=== PATIENT | female | born 1970 | race Caucasian/White ===

== ENCOUNTER 2017-03-07 03:36 | Emergency (ER) | payer MEDICARE, OTHER ==
[~2017-03-07] VITALS: Ht 170.2 cm; Wt 83.9 kg
--- OUTSIDE RECORDS SUMMARY | ~2017-03-07 | XMS ---
Demographics + + + | Address | [address] | | | [place] [address] | + + + | Preferred Language | Unknown | + + + | Marital Status | Unknown | + + + | Yazidi Affiliation | Unknown | + + + | Race | Unknown | + + + | Ethnic Group | Unknown | + + + Author + + + | Author | [facility] | + + + | Organization | [facility] | + + + | Address | [address] | | | [place] [address] | + + + | Phone | | + + + Care Team Providers + + + + | Care Drywaller Name | Role | Phone | + + + + Unavailable | Unavailable | + + + + PROBLEMS Unknown Problems ALLERGIES No Information SOCIAL HISTORY Never Assessed PLAN OF CARE VITAL SIGNS MEDICATIONS Unknown Medications RESULTS No Results PROCEDURES No Known procedures IMMUNIZATIONS No Known Immunizations MEDICAL (GENERAL) HISTORY + + + + | Type | Description | Date | + + + + | Medical History | Hypothyroidism | | + + + + | Medical History | Depression/Anxiety | | + + + + | Medical History | asthma - mild intermittent | | + + + + | Medical History | hypercholesterolemia | | + + + + | Surgical History | knee arthroscopy x2 | | + + + + | Surgical History | carpal tunnel release | 2011 | | | (bilateral) | | + + + + | Surgical History | cholecystectomy | 2013 | + + + + | Surgical History | Foot Surgery | 2015 | + + + + | Surgical History | Hysteroscopy with D&C | 01/2016 | + + + + | Surgical History | T & A | 2016 | + + + +"
[~2017-03-07 03:36] MED LIST: ALBUTEROL2.5 MG/0.5 PO; AMBIEN10 MG PO; AMOXICILLIN500 MG PO; BUSPIRONE HCL15 MG PO; CELEXA40 MG PO; CITALOPRAM HBR10 MG PO; CLONAZEPAM0.5 MG PO; FENOFIBRATE160 MG PO; HYCET 7.5 MG-3473 ML PO; HYDROCODON-ACE1 EA10 PO; LEVOTHYROXINE75 MCG PO; LIPITOR40 MG; LITHIUM CARBON300 M1 PO; LITHIUM CARBON300 MG PO; PERCOCET 5-3251 EACH PO; PERCOCET 7.5-31 EACH PO; PREDNISONE20 MG PO; PROAIR HFA8.5 GM INH; SINGULAIR10 MG PO; TUSSIONEX PENN480 ML PO; VENTOLIN HFA18 GM INH; VITAMIN D5000 UNI1 PO
[2017-03-07] MEDS ORDERED: VALIUM5 MG PO (03:46)
[2017-03-07] MEDS ORDERED: DILAUDID4 MG PO (03:46)
[2017-03-07] MEDS ORDERED: BACLOFEN10 MG PO (03:58)
== END 2017-03-07 04:55 | disposition home or self-care (01) ==
LOC: ED 03:36
DX: G89.18 Other acute postprocedural pain (principal); M79.605 Pain in left leg; F31.9 Bipolar disorder, unspecified; F40.00 Agoraphobia, unspecified; E03.9 Hypothyroidism, unspecified; J45.909 Unspecified asthma, uncomplicated; F41.9 Anxiety disorder, unspecified; F17.200 Nicotine dependence, unspecified, uncomplicated; Z90.710 Acquired absence of both cervix and uterus; Z98.890 Other specified postprocedural states; Z79.899 Other long term (current) drug therapy
CPT/HCPCS: 96372; 99282; J2550; J3010

== ENCOUNTER 2017-04-11 11:22 | Emergency (ER) | payer MEDICARE, OTHER ==
[~2017-04-11] VITALS: Ht 170.2 cm; Wt 73.9 kg
[~2017-04-11 11:22] MED LIST changes: +BACLOFEN10 MG PO; +DILAUDID4 MG PO; +VALIUM5 MG PO
[2017-04-11] MEDS ORDERED: LITHIUM8 MEQ/5 ML (11:42)
[2017-04-11] MEDS ORDERED: VENTOLIN HFA18 GM (11:42)
== END 2017-04-11 17:10 | disposition short-term general hospital (02) ==
LOC: ED 11:22
PROC: 4A0D7LZ Measurement of Urinary Volume, Via Natural or Artificial Opening (ICD-10-PCS; principal; 2017-04-11)
DX: T56.891A Toxic effect of other metals, accidental (unintentional), initial encounter (principal); E86.0 Dehydration; F31.9 Bipolar disorder, unspecified; F41.9 Anxiety disorder, unspecified; E03.9 Hypothyroidism, unspecified; J45.909 Unspecified asthma, uncomplicated; Z87.891 Personal history of nicotine dependence; Z90.710 Acquired absence of both cervix and uterus; Z90.89 Acquired absence of other organs; Z88.5 Allergy status to narcotic agent; Z88.6 Allergy status to analgesic agent; Z79.899 Other long term (current) drug therapy
CPT/HCPCS: 51798; 80053; 80178; 81001; 83605; 83690; 85025; 99285; G0480; J7030

== ENCOUNTER 2017-08-05 12:33 | Emergency (ER) | payer MEDICARE, OTHER ==
[~2017-08-05] VITALS: Ht 170.2 cm; Wt 73.9 kg
[~2017-08-05 12:33] MED LIST changes: +LITHIUM8 MEQ/5 ML; +VENTOLIN HFA18 GM
[2017-08-05] MEDS ORDERED: DOK100 M1 PO (12:50)
[2017-08-05] MEDS ORDERED: BACLOFEN10 MG PO (12:50)
[2017-08-05] MEDS ORDERED: OXYCONTIN10 MG PO (12:52)
[2017-08-05] MEDS ORDERED: PERCOCET 5-3251 EACH PO (12:52)
[2017-08-05] MEDS ORDERED: XANAX0.5 MG PO (12:53)
--- OUTSIDE RECORDS SUMMARY | 2017-08-05 13:18 | XMS ---
Demographics + + + | Address | [address] | | | [place] [address] | + + + | Preferred Language | Unknown | + + + | Marital Status | Unknown | + + + | Yazdanism Affiliation | Unknown | + + + | Race | Unknown | + + + | Ethnic Group | Unknown | + + + Author + + + | Author | [facility] | + + + | Organization | [facility] | + + + | Address | [address] | | | [place] [address] | + + + | Phone | | + + + Care Team Providers + + + + | Care Build And Release Manager Name | Role | Phone | + + + + Unavailable | Unavailable | + + + + PROBLEMS Unknown Problems ALLERGIES Unknown Allergies SOCIAL HISTORY No smoking Hx information available PLAN OF CARE VITAL SIGNS MEDICATIONS Unknown Medications RESULTS No Results PROCEDURES No Known procedures IMMUNIZATIONS No Known Immunizations"
[2017-08-05] MEDS ORDERED: ZOFRAN ODT4 MG PO (14:47)
== END 2017-08-05 14:55 | disposition home or self-care (01) ==
LOC: ED 12:33
DX: R11.2 Nausea with vomiting, unspecified (principal); E03.9 Hypothyroidism, unspecified; F31.9 Bipolar disorder, unspecified; F41.9 Anxiety disorder, unspecified; J45.909 Unspecified asthma, uncomplicated; F17.200 Nicotine dependence, unspecified, uncomplicated; Z88.5 Allergy status to narcotic agent; Z88.6 Allergy status to analgesic agent; Z79.899 Other long term (current) drug therapy
CPT/HCPCS: 80053; 80178; 81001; 85025; 96374; 96375; 99283; J1170; J2405; J7120

== ENCOUNTER 2020-08-29 08:30 | Day surgery (SDC) | payer MEDICARE ==
[~2020-08-29] VITALS: Ht 170.2 cm; Wt 80.0 kg
[~2020-08-29 08:30] MED LIST changes: +DOK100 M1 PO; +LITHIUM CARBON450 MG PO; +LITHOBID300 MG PO; +ONDANSETRON ODT4 MG PO; +OXYCODONE-ACET1 EAC3 PO; +OXYCONTIN10 MG PO; +XANAX0.5 MG PO; +ZOFRAN ODT4 MG PO
[2020-08-29] MEDS ORDERED: LAMICTAL25 MG PO (08:49)
--- NOTE | 2020-08-29 10:26 | NUR ---
08/29/20 1026 Dia Dow 1021 PATIENT ARRIVES TO PACU AWAKE OFF/ON. RESP EVEN AND UNLABORED, NC AT 3 LITERS TURNED OFF ON ARRIVAL TO PACU. PATIENT DENIES PAIN OR NAUSEA.
--- NOTE | 2020-08-30 05:52 | OR ---
[facility] [address] [place], [place] [address] Signed DATE OF OPERATION: 08/29/2020 SURGEON: Martinez Ramirez MD PREOPERATIVE DIAGNOSES: 1. Screening. 2. Change in bowel habits with constipation following narcotics. 3. Remote history of diarrhea after cholecystectomy. POSTOPERATIVE DIAGNOSES: 1. Minimal internal hemorrhoids. 2. 4 mm polyps x2 at 7 cm. 3. 3 mm polyp at 15 cm (rectum). 4. 5 mm polyp at 25 cm. PROCEDURE: Colonoscopy with hot biopsy and random cold biopsies x2. ESTIMATED BLOOD LOSS: None. INDICATIONS: Jamaica is a 50-year-old female, asked to see mainly for a screening colonoscopy. She talked about diarrhea after her cholecystectomy. That seemed to have improved over time. She has also had her knee replaced and was having a change in bowel habits with constipation because of the oxycodone and again that is improved as she has decreased the oxycodone. She tells me there is no family history of colon cancer or polyps. This would be her 1st colonoscopy. In the office, I gave her and her friend a booklet on colonoscopy. Her friend has been through this already. She understands the nature of the test along with the risks including, but not limited to gas bloating, crampy abdominal pain, bleeding, perforation requiring surgery, and missed diagnosis. We also discussed the need for the IV conscious sedation, she had expressed understanding and wished to proceed. PROCEDURE NOTE: Jamaica was taken into the endoscopy suite and placed in the left lateral decubitus position. She was given a total of 13 mg of Versed and 200 mcg of fentanyl to cover the case. Even then she was little uncomfortable and able to talk and move her head about. We almost had our anesthesia provider come, but she was technically easy to scope and made it through on this occasion. I think in the future she probably would benefit from Electronically Signed By: MARTINEZ RAMIREZ MD 08/30/20 0552 PATIENT NAME: JAMAICA ALBRECHT [facility]ZTOF OPERATIVE REPORT DATE OF : 68 REPORT #: [id number] PHYSICIAN: MARTINEZ RAMIREZ MD PCP: NIGHAT HUIZAR REPORT IS CONFIDENTIAL AND NOT TO BE RELEASED WITHOUT AUTHORIZATION [facility] [address] [place] [id number] Signed monitored anesthesia care with propofol given our current experience and her current list of medications. We did a digital rectal exam and this was unremarkable. She had a small bruise on the right hip that was old. The adult colonoscope was introduced and advanced under direct visualization of camera. Again, it took quite a bit of medication and some abdominal compression in order to advance the scope into the cecum itself. Her prep was good. We could easily see the appendiceal orifice and ileocecal valve. The scope was then slowly withdrawn. We took pictures throughout for photodocumentation. We took a random biopsy in the right and left colon because of history of diarrhea. We removed the above polyps with the help of hot biopsy forceps. There was no diverticulosis. Upon retroflexion of the scope, we could see just tiny standard internal hemorrhoid columns. After this, the gas was suctioned out and colonoscope removed. Jamaica tolerated the procedure quite well. RECOMMENDATIONS: I will see Jamaica back in my office in 7 to 14 days to review her results. For future colonoscopy, she probably should consider monitored anesthesia care with propofol. Martinez Ramirez MD ALB/MODL /[id number] cc: MD Nighat Schwartz PA Copies: MARTINEZ RAMIREZ MD ~ Electronically Signed By: MARTINEZ RAMIREZ MD 08/30/20 0552 PATIENT NAME: JAMAICA ALBRECHT KRZYSZTOF OPERATIVE REPORT DATE OF : 68 REPORT #: [id number] PHYSICIAN: MARTINEZ RAMIREZ MD PCP: NIGHAT HUIZAR REPORT IS CONFIDENTIAL AND NOT TO BE RELEASED WITHOUT AUTHORIZATION
--- NOTE | 2020-08-31 14:52 | PATH ---
[facility] [address] [place], [place] [address] Signed SPECIMEN(S): A RECTAL POLYP 7 CM SPECIMEN(S): B SIGMOID POLYP 15 CM SPECIMEN(S): C COLON BIOPSY SPECIMEN(S): D SIGMOID POLYP 25 CM SPECIMEN SOURCE: A. RECTAL POLYP 7 CM B. SIGMOID POLYP 15 CM C. COLON BIOPSY D. SIGMOID POLYP 25 CM CLINICAL HISTORY: Constipation; screening MICROSCOPIC DESCRIPTION: Histologic sections of all submitted blocks are examined by light microscopy. These findings, together with the gross examination, support the pathologic diagnosis. FINAL PATHOLOGIC DIAGNOSIS: A. Rectum, polyp at 7 cm, polypectomy: - Fragments of hyperplastic polyp. - Negative for dysplasia or malignancy. B. Colon, sigmoid, polyp at 15 cm, polypectomy: - Colonic mucosa with no histopathologic abnormality. - Negative for dysplasia or malignancy. C. Colon, biopsy: - Colonic mucosa with no histopathologic abnormality. - Negative for active, chronic, or microscopic colitis. - Negative for dysplasia or malignancy. D. Colon, sigmoid, polyp at 25 cm, polypectomy: - Favor tubular adenoma. - Negative for malignancy. COMMENT: Regarding specimen B: Multiple additional deeper levels were examined. Regarding specimen D: Cautery artifact limits histologic examination, but low-grade dysplasia is favored to be present. No high-grade dysplasia is seen and there is no evidence of malignancy. NAL:cml:[id number] GROSS DESCRIPTION: PATIENT NAME: KARTHIK ALBRECHT [facility] DATE OF : 68 REPORT #: [id number] PHYSICIAN: IVETTE QUINTERO PCP: IRASEMA HUIZAR REPORT IS CONFIDENTIAL AND NOT TO BE RELEASED WITHOUT AUTHORIZATION [facility] [address] [place], [place] [address] Signed Four specimens are received in four containers, labeled "PG." A. The specimen, labeled "PG, one," and designated on the requisition "rectum polypectomy 7 cm," is received in formalin and consists of three baeza soft tissue fragments that measure 0.3 up to 0.5 cm in greatest dimension. The specimen is entirely submitted in cassette (A1). B. The specimen, labeled "PG, two," and designated on the requisition "sigmoid polypectomy, 15 cm," is received in formalin and consists of one baeza soft tissue fragment that measures 0.5 cm in greatest dimension. The specimen is entirely submitted in cassette (B1). C. The specimen, labeled "PG, three," and designated on the requisition "colon biopsy," is received in formalin and consists of two elongated baeza soft tissue fragments that measure 0.4 and 0.6 cm in greatest dimension. The specimen is entirely submitted in cassette (C1). D. The specimen, labeled "PG, four," and designated on the requisition "sigmoid polypectomy 25 cm," is received in formalin and consists of multiple green vegetable material fragments and baeza soft tissue fragments that measure less than 0.1 up to 0.4 cm in greatest dimension. The specimen is entirely submitted in cassette (D1). AI (under the direct supervision of a pathologist) The Gross Description was prepared using a voice recognition system. The report was reviewed for accuracy; however, sound-alike word errors, addition and/or deletions may occur. If there is any question about this report, please contact Client Services. PERFORMING LABORATORY: The technical component was performed by [facility], [address] [place] [id number] ([employer] Superintendent: Kasey Yuan MD; CLIA# [id number]). Professional interpretation was performed by [facility], [facility], [address] [address] (CLIA# [id number]). Diagnostician: Tasha Brown MD Pathologist Electronically Signed 08/31/2020 Copies: ~ PATIENT NAME: KARTHIK ALBRECHT [facility] PATHOLOGY DATE OF : 68 REPORT #: [id number] PHYSICIAN: IVETTE PATHOLOGY PCP: IRASEMA HUIZAR REPORT IS CONFIDENTIAL AND NOT TO BE RELEASED WITHOUT AUTHORIZATION
== END 2020-08-29 10:55 | disposition home or self-care (01) ==
LOC: OPS 08:30 → DS 08:32 → OPS 09:45
PROVIDERS: ATTEND Colon & Rectal Surgery
PROC: 0DBN8ZX Excision of Sigmoid Colon, Via Natural or Artificial Opening Endoscopic, Diagnostic (ICD-10-PCS; 2020-08-29)
PROC: 0DBG8ZX Excision of Left Large Intestine, Via Natural or Artificial Opening Endoscopic, Diagnostic (ICD-10-PCS; 2020-08-29)
PROC: 0DBF8ZX Excision of Right Large Intestine, Via Natural or Artificial Opening Endoscopic, Diagnostic (ICD-10-PCS; 2020-08-29)
PROC: 0DBP8ZX Excision of Rectum, Via Natural or Artificial Opening Endoscopic, Diagnostic (ICD-10-PCS; principal; 2020-08-29 09:45)
DX: K59.03 Drug induced constipation (principal); T40.605A Adverse effect of unspecified narcotics, initial encounter; K64.8 Other hemorrhoids; K62.1 Rectal polyp; K63.5 Polyp of colon; J45.20 Mild intermittent asthma, uncomplicated; E03.9 Hypothyroidism, unspecified; E78.5 Hyperlipidemia, unspecified; Z88.6 Allergy status to analgesic agent; Z88.5 Allergy status to narcotic agent; Z88.0 Allergy status to penicillin; Z88.2 Allergy status to sulfonamides
CPT/HCPCS: 99153; G0500; J2250; J3010; J3490; J7121

== ENCOUNTER 2022-10-11 10:12 | Emergency (ER) | payer OTHER, MEDICARE ==
[~2022-10-11] VITALS: Ht 172.7 cm; Wt 73.5 kg
[~2022-10-11 10:12] MED LIST changes: +LAMICTAL25 MG PO
[2022-10-11] MEDS ORDERED: ZOLPIDEM TARTRA10 MG PO (10:21)
[2022-10-11] MEDS ORDERED: METHOCARBAMOL750 MG PO (11:48)
[2022-10-11 11:59] VITALS: BP 132/78
== END 2022-10-11 12:02 | disposition home or self-care (01) ==
LOC: ED 10:12
DX: S33.5XXA Sprain of ligaments of lumbar spine, initial encounter (principal); S80.02XA Contusion of left knee, initial encounter; V43.52XA Car driver injured in collision with other type car in traffic accident, initial encounter; J45.909 Unspecified asthma, uncomplicated; E03.9 Hypothyroidism, unspecified; Z98.1 Arthrodesis status; Z96.652 Presence of left artificial knee joint; Z87.891 Personal history of nicotine dependence; Z88.5 Allergy status to narcotic agent; Z88.0 Allergy status to penicillin; Z88.6 Allergy status to analgesic agent; Z88.8 Allergy status to other drugs, medicaments and biological substances; Z79.899 Other long term (current) drug therapy
CPT/HCPCS: 73560; 99284-25; A9270